=== PATIENT | male | born 1945 | race Caucasian/White ===

== ENCOUNTER → 2018-04-02 | Outpatient (CLI) | payer MEDICARE, OTHER | LOC: M.MRI 07:01 | DX: M79.602 Pain in left arm (principal); G89.29 Other chronic pain ==

== ENCOUNTER 2018-05-30 16:36 | Emergency (ER) | payer MEDICARE, OTHER ==
[~2018-05-30] VITALS: Ht 177.8 cm; Wt 77.1 kg
[2018-05-30] MEDS ORDERED: PROBIOTIC1 EAC2 PO (16:49)
[2018-05-30] MEDS ORDERED: JANUMET 50-1,01 EACH PO (16:49)
[2018-05-30] MEDS ORDERED: CENTRUM ADULTS1 EACH PO (16:49)
[2018-05-30 17:12] LABS: ABSOLUTE BASOPHILS 0.1 thou/uL (0.0-0.2); ABSOLUTE EOSINOPHILS 0.1 thou/uL (0.0-0.7); ABSOLUTE LYMPHOCYTES 1.8 thou/uL (0.8-5.3); ABSOLUTE MONOCYTES 0.9 thou/uL (0.0-1.2); ABSOLUTE NEUTROPHILS 6.2 thou/uL (1.6-8.1); EOSINOPHILS 1.2 %; HEMATOCRIT 42.2 % (42.0-52.0); HEMOGLOBIN 14.3 gm/dL (14.0-18.0); LYMPHOCYTES 19.4 %; MCH 31.3 pg (26.0-34.0); MCHC 33.9 g/dL (28.0-37.0); MCV 92.5 fL (80.0-100.0); MONOCYTES 10.2 %; MPV 7.6 fl. (7.2-11.1); NUCLEATED RBCS 0 /100WBC; PLATELET COUNT* 214 thou/uL (150-400); POLYS 68.2 %; RBC 4.57 mil/uL (4.50-6.00); RDW-CV 13.6 % (10.5-14.5); WBC 9.1 thou/uL (4.0-11.0)
[2018-05-30 17:19] LABS: CALCIUM 8.5 mg/dL (8.5-10.1)
[2018-05-30 17:23] LABS: ALBUMIN 3.1 g/dL (3.4-5.0); TOTAL BILIRUBIN 0.3 mg/dL (<0.1-1.0)
[2018-05-30 17:48] LABS: URINE BILIRUBIN NEGATIVE (Negative); URINE BLOOD NEGATIVE (Negative); URINE CLARITY CLEAR; URINE COLOR YELLOW; URINE GLUCOSE-RANDOM 1+ (Negative); URINE KETONES NEGATIVE (Negative); URINE LEUKOCYTES-REFLEX NEGATIVE (Negative); URINE NITRITE-REFLEX NEGATIVE (Negative); URINE PROTEIN NEGATIVE (Negative); URINE SPECIFIC GRAVITY 1.025 (1.005-1.030); URINE UROBILINOGEN 0.2 E.U./dl (0.2-1.0)
[2018-05-30] MEDS ORDERED: FLAGYL500 M1 PO (18:20)
[2018-05-30] MEDS ORDERED: BENTYL 20 MG TA20 M1 PO (18:20)
[2018-05-30 18:47] VITALS: BP 126/73
== END 2018-05-30 18:36 | disposition home or self-care (01) ==
LOC: M.ERS 16:36
PROVIDERS: Nurse Practitioner Family
DX: K52.9 Noninfective gastroenteritis and colitis, unspecified (principal); R74.8 Abnormal levels of other serum enzymes; E11.9 Type 2 diabetes mellitus without complications; G47.30 Sleep apnea, unspecified; I95.9 Hypotension, unspecified; Z90.49 Acquired absence of other specified parts of digestive tract

== ENCOUNTER 2019-06-29 14:47 | Inpatient (IN) | payer MEDICARE, OTHER ==
[~2019-06-29 14:47] MED LIST changes: -AUGMENTIN 875-1 EACH PO; -GLIPIZIDE 10 MG10 MG PO
[2019-06-29] MEDS ORDERED: GLIPIZIDE 10 MG10 MG PO (18:19)
[2019-06-29 18:21] VITALS: BP 153/85
[2019-06-29 19:32] LABS: URINE BILIRUBIN NEGATIVE (Negative); URINE BLOOD NEGATIVE (Negative); URINE CLARITY CLEAR; URINE COLOR YELLOW; URINE GLUCOSE-RANDOM 1+ (Negative); URINE KETONES NEGATIVE (Negative); URINE LEUKOCYTES NEGATIVE (Negative); URINE NITRITE NEGATIVE (Negative); URINE PROTEIN NEGATIVE (Negative); URINE SPECIFIC GRAVITY 1.025 (1.005-1.030); URINE UROBILINOGEN 0.2 E.U./dl (0.2-1.0)
[2019-06-29 19:35] VITALS: BP 115/69
--- NOTE | 2019-06-29 20:28 | NUR ---
PATIENT IS A DIRECT ADMIT THAT ARRIVED TO UNIT AT APPROX 1630. PATIENT IS ALERT AND ORIENTED X4. ADMISSION HISTORY AND ASSESSMENT COMPLETED AND CHARTED. VSS ON ROOM AIR. MINIMAL COMPLAINT OF PAIN IN LLQ RATED AT 3/10, PATIENT DID NOT REQUEST PAIN MEDICATION. IV STARTED IN THE LEFT FA. PATIENT NPO WITH SIPS FOR MEDS. SURGERY RESIDENT SAW PATIENT AT BEDSIDE. UP AD JASON AND INSTRUCTED TO USE CALL LIGHT FOR NEEDS. CALL LIGHT PLACED IN REACH. HOURLY ROUNDS. WILL CONTINUE WITH PLAN IF CARE.
[2019-06-29 20:35] LABS: ABSOLUTE BASOPHILS 0.1 thou/uL (0.0-0.2); ABSOLUTE EOSINOPHILS 0.1 thou/uL (0.0-0.7); ABSOLUTE LYMPHOCYTES 1.7 thou/uL (0.8-5.3); ABSOLUTE MONOCYTES 1.2 thou/uL (0.0-1.2); ABSOLUTE NEUTROPHILS 5.4 thou/uL (1.6-8.1); BASOPHILS 0.8 %; EOSINOPHILS 1.2 %; HEMATOCRIT 41.7 % (42.0-52.0); HEMOGLOBIN 14.5 gm/dL (14.0-18.0); LYMPHOCYTES 20.2 %; MCHC 34.8 g/dL (28.0-37.0); MCV 91.9 fL (80.0-100.0); MONOCYTES 13.7 %; MPV 8.2 fl. (7.2-11.1); NUCLEATED RBCS 0 /100WBC; PLATELET COUNT* 190 thou/uL (150-400); POLYS 64.1 %; RBC 4.53 mil/uL (4.50-6.00); RDW-CV 14.2 % (10.5-14.5); WBC 8.4 thou/uL (4.0-11.0)
[2019-06-29 20:51] LABS: CALCIUM 8.1 mg/dL (8.5-10.1); CREATININE 1.1 mg/dL (0.6-1.3); POTASSIUM 4.1 mmol/L (3.5-5.1)
[2019-06-29 20:53] LABS: ALBUMIN 3.3 g/dL (3.4-5.0); MAGNESIUM 1.7 mg/dL (1.8-2.4); TOTAL BILIRUBIN 0.3 mg/dL (<0.1-1.0); TOTAL PROTEIN 7.1 g/dL (6.4-8.2)
[2019-06-30 03:00] LABS: ABSOLUTE EOSINOPHILS 0.2 thou/uL (0.0-0.7); ABSOLUTE LYMPHOCYTES 1.8 thou/uL (0.8-5.3); ABSOLUTE NEUTROPHILS 4.8 thou/uL (1.6-8.1); BASOPHILS 0.6 %; LYMPHOCYTES 22.7 %; MCH 31.8 pg (26.0-34.0); MCV 93.3 fL (80.0-100.0); MONOCYTES 12.9 %; MPV 8.2 fl. (7.2-11.1); NUCLEATED RBCS 0 /100WBC; PLATELET COUNT* 193 thou/uL (150-400); POLYS 61.8 %; RDW-CV 14.4 % (10.5-14.5); WBC 7.8 thou/uL (4.0-11.0)
[2019-06-30 03:18] LABS: CALCIUM 8.1 mg/dL (8.5-10.1); CREATININE 1.1 mg/dL (0.6-1.3); MAGNESIUM 1.9 mg/dL (1.8-2.4); PHOSPHORUS* 3.4 mg/dL (2.5-4.9); POTASSIUM 4.2 mmol/L (3.5-5.1)
--- NOTE | 2019-06-30 04:44 | NUR ---
PT RESTING/SLEEPING THROUGH THE NIGHT. REPORTED MILD DISCOMFORT ON LT SIDE OF ABD. MEDS GIVEN ORDERED. VSS ON RA. UP INDEPENDENTLY IN THE ROOM. NPO EXCEPT MEDS. DENIED N/V. WILL CONTINUE TO MONITOR.
[2019-06-30 09:30] VITALS: BP 118/70
--- NOTE | 2019-06-30 14:26 | NUR ---
cm completed initial assessment to discuss d/c plan. pt A&Ox4. pt states is very active. employeed, and goes to "[employer] 3x/wk." pt lives w/spouse. states he has a pretty good support. has a cpap. no hx w/snf or hh. cm to cont to follow.
--- NOTE | 2019-06-30 16:36 | EKG ---
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
--- NOTE | 2019-06-30 19:00 | NUR ---
PATIENT ALERT AND ORIENTED THRU SHIFT. INDEP IN RM. MIN ABD PAIN C/O. AMB IN HALLS INDEP W/ CANE, NOTED STEADY GAIT. SHOWER THIS AM. IV SITE NOTED WNL. FLUIDS INFUSING W/O DIFF. HRLY ROUNDS DONE. DENIES OTHER NEEDS AT THIS TIME. CALL LIGHT IN REACH. ~TJRN
[2019-06-30 20:00] VITALS: BP 130/77
[2019-07-01 04:04] LABS: ABSOLUTE EOSINOPHILS 0.2 thou/uL (0.0-0.7); ABSOLUTE LYMPHOCYTES 1.6 thou/uL (0.8-5.3); ABSOLUTE MONOCYTES 0.8 thou/uL (0.0-1.2); BASOPHILS 0.4 %; EOSINOPHILS 2.5 %; HEMOGLOBIN 13.9 gm/dL (14.0-18.0); MCH 31.6 pg (26.0-34.0); MCHC 33.9 g/dL (28.0-37.0); MCV 93.2 fL (80.0-100.0); MONOCYTES 11.7 %; MPV 8.1 fl. (7.2-11.1); NUCLEATED RBCS 0 /100WBC; PLATELET COUNT* 190 thou/uL (150-400); POLYS 60.4 %; RBC 4.41 mil/uL (4.50-6.00); RDW-CV 14.5 % (10.5-14.5); WBC 6.6 thou/uL (4.0-11.0)
[2019-07-01 04:16] LABS: MAGNESIUM 1.7 mg/dL (1.8-2.4); PHOSPHORUS* 2.8 mg/dL (2.5-4.9)
[2019-07-01 04:19] LABS: ALBUMIN 2.9 g/dL (3.4-5.0); CREATININE 1.1 mg/dL (0.6-1.3); POTASSIUM 4.2 mmol/L (3.5-5.1); TOTAL BILIRUBIN 0.6 mg/dL (<0.1-1.0); TOTAL PROTEIN 6.3 g/dL (6.4-8.2)
--- NOTE | 2019-07-01 06:47 | NUR ---
Alert and oriented x 4. He is up independently in the room to the bathroom. He has not requested and pain meds. He has had IV fluids going all of this shift and IV zosyn running over 4 hours. Vitals are stable. Radiology just called and said to make him NPO for a CT of the abdomen/pelvis, patient was told. His magnesium was low this morning and it was replaced,order placed in the computer for redraw.
[2019-07-01 08:30] VITALS: BP 140/70
[2019-07-01 16:00] VITALS: BP 124/71
--- NOTE | 2019-07-01 19:00 | NUR ---
PT IS A/OX4. DENIES PAIN. NPO THIS AM FOR CT OF THE ABDOMINAL. RESULTS SHOW MILD DIVERTICULITIS WITH NO PERFORATION. THE PTS DIET WAS ADVANCED TO CLEARS TO SOFT. GI IN TO SEE THE PT. DISCHARGE TO BE LEFT TO THE HOSPITALIST. HOSPITALIST NOTES THE PT TO STAY 1-2 DAYS. CONTINUES ON IVF NS @ 100 VIA LT FA. PT IS RESTING QUIETLY AT THIS TIME WITH CALL LIGHT IN REACH. BED LOW AND LOCKED. WILL CONTINUE TO MONITOR.
[2019-07-01 20:50] VITALS: BP 125/75
[2019-07-02 04:33] LABS: HEMATOCRIT 40.8 % (42.0-52.0); HEMOGLOBIN 13.9 gm/dL (14.0-18.0); MCH 31.6 pg (26.0-34.0); MCHC 34.1 g/dL (28.0-37.0); MCV 92.6 fL (80.0-100.0); RBC 4.41 mil/uL (4.50-6.00); RDW-CV 14.4 % (10.5-14.5); WBC 5.3 thou/uL (4.0-11.0)
[2019-07-02 04:57] LABS: ALBUMIN 2.9 g/dL (3.4-5.0); CALCIUM 7.8 mg/dL (8.5-10.1); CREATININE 1.1 mg/dL (0.6-1.3); MAGNESIUM 1.9 mg/dL (1.8-2.4); POTASSIUM 4.2 mmol/L (3.5-5.1); TOTAL BILIRUBIN 0.4 mg/dL (<0.1-1.0); TOTAL PROTEIN 6.4 g/dL (6.4-8.2)
--- NOTE | 2019-07-02 07:02 | NUR ---
PATIENT HAS RESTED WELL THROUGHOUT MOST OF THE NIGHT. VSS ON RA. NO C/O PAIN. PATIENT IS UP AD-JASON. TOLERATING DIET WELL. IV IN LEFT FOREARM-NS @ 100ML/HR. PATIENT INSTRUCTED TO USE CALL LIGHT WHEN NEEDING ASSISTANCE. HOURLY ROUNDS MADE. WILL CONTINUE WITH PLAN OF CARE AND NURSING TO MONITOR.
[2019-07-02 07:52] VITALS: BP 156/76
[2019-07-02] MEDS ORDERED: AUGMENTIN 875-1 EACH PO ×2 (11:05)
[2019-07-02 13:24] VITALS: BP 156/76
--- NOTE | 2019-07-02 14:25 | NUR ---
PT DISCHAGRED TO HOME SELF CARE. IV REMOVED. DISCHARGE INSTRUCTION REVIEWED WITH THE PT. PRESCRIPTION GIVEN TO THE PT. PT STABLE. ALL FOLLOW UP APPOINTMENTS REVIEWED. PT HAS ALL BELONGINGS. AMBULATED TO PERSONAL VEHICLE ACCOMPANIED BY STAFF.
--- NOTE | 2019-07-05 09:20 | CON ---
[facility] [address] [place] [address] CONSULTATION Name: DARCIE OLIVEROS Room: [address] IN M.R.#: [id number] Admission: 06/29/19 Attend Phys: Janine Rodriguez Discharge: 07/02/19 Date of : 45 Report #: [id number] THIS REPORT FOR: //name// cc: Jazmyne Wakefield NP, Tammy NP ~ THIS REPORT FOR: //name// CC: Joselin Brown DICTATED BY: Janina Vanessa [facility] DATE OF SERVICE: 07/01/2019 Please note at the time of this dictation, the patient was seen and physically examined by myself. REASON FOR CONSULTATION: Diverticulitis. HISTORY OF PRESENT ILLNESS: This is a 73-year-old male who was admitted to the Emergency Room after he went and saw his PCP on 06/27 for left lower quadrant pain. He denied any fever, chills or any change in his bowel habits. He denied having any constipation. On Thursday06/29/2019, he went and had a CT scan done that showed a small pocket of free air of 2.5 cm with diverticulitis on the left side that was noted. He was then direct admit to the floor following learning of his CT results. The patient states his bowels move usually on a daily basis, soft and formed. He has not had any issues with constipation. He denied any nausea, vomiting or any fever or chills. The patient was started on antibiotics IV at that particular time. The patient states his last colonoscopy was in 2008 and everything was normal with Dr. Lima. He also at that time had an EGD done and was noted to have grade 1 esophageal cancer. He was sent to see Dr. Pang who later underwent surgery. His last EGD was with Dr. De Dios in 2012 and he has not had a followup with that. He continues to deny any issues with any acid reflux at this time. ALLERGIES: No known drug allergies. MEDICATIONS: From home includes Janumet, Centrum, probiotic and some Bentyl and he had started on Flagyl 500. PAST MEDICAL HISTORY: Esophageal cancer back in 2008, current diverticulitis, osteoarthritis and diabetes. PAST SURGICAL HISTORY: He had an appendectomy [place] [address] CONSULTATION Name: DARCIE OLIVEROS Room: [address]#: [id number] Admission: 06/29/19 Attend Phys: Janine Rodriguez Discharge: 07/02/19 Date of : 45 Report #: [id number] gastric polyp. FAMILY HISTORY: Negative for any GI or female cancers. SOCIAL HISTORY: Lives with his spouse. Denies any alcohol, tobacco or illegal drug use. REVIEW OF SYSTEMS: Twelve-point review of systems is essentially negative except what is mentioned in the HPI. PHYSICAL EXAMINATION: VITAL SIGNS: Temperature 36.6, pulse 54, respirations 18, blood pressure 130/77. HEART: Regular rate and rhythm. LUNGS: Clear. ABDOMEN: Soft, positive bowel sounds in all 4 quadrants with some tenderness noted in the left lower quadrant area. LABORATORY DATA: Hemoglobin is 13.9, white count is 6.6, platelets are 190. GFR is 66. His LFTs are completely normal. CT done this morning shows slight improvement in the mild diverticulitis in the low descending colon compared to previously with no diverticular abscess or sign of perforation noted at this time. IMPRESSION: 1. Left lower quadrant pain. 2. Diverticulitis, improving. 3. History of esophageal cancer. PLAN: 1. We will continue his current antibiotics, IV and upon discharge, he will need additional oral medication at that time. 2. Recommend a low residue diet for the next month. 3. The patient will need EGD and colon in about 6 weeks with aching of his diverticular disease. 4. Further recommendations to be made once Dr. Mei sees the patient later today. Thank you for allowing us to participate in this patient's care. Please do not hesitate to call with any questions in regard to this consult. <ELECTRONICALLY SIGNED> By: Andres Mei DO 07/05/19 0920 1140 [id number] Mei DO /nt
== END 2019-07-02 14:25 | disposition home or self-care (01) | DRG 392 ==
LOC: M.ORTHSURG 14:47
PROVIDERS: Internal Medicine; Surgery; ADMIT Internal Medicine
DX: K57.20 Diverticulitis of large intestine with perforation and abscess without bleeding (principal); E44.0 Moderate protein-calorie malnutrition; E11.9 Type 2 diabetes mellitus without complications; E78.5 Hyperlipidemia, unspecified; G47.33 Obstructive sleep apnea (adult) (pediatric); M19.90 Unspecified osteoarthritis, unspecified site; Z85.01 Personal history of malignant neoplasm of esophagus; Z79.84 Long term (current) use of oral hypoglycemic drugs; Z79.899 Other long term (current) drug therapy; Z90.49 Acquired absence of other specified parts of digestive tract; Z82.49 Family history of ischemic heart disease and other diseases of the circulatory system; Z83.3 Family history of diabetes mellitus; Z99.81 Dependence on supplemental oxygen; Z86.010 Personal history of colon polyps

== ENCOUNTER → 2019-06-29 | Outpatient (CLI) | payer MEDICARE, OTHER ==
[~2019-06-29] MED LIST: AUGMENTIN 875-1 EACH PO; BENTYL 20 MG TA20 M1 PO; CENTRUM ADULTS1 EACH PO; FLAGYL500 M1 PO; GLIPIZIDE 10 MG10 MG PO; JANUMET 50-1,01 EACH PO; PROBIOTIC1 EAC2 PO
== END ==
LOC: M.CT 10:00
DX: N20.0 Calculus of kidney (principal); K57.30 Diverticulosis of large intestine without perforation or abscess without bleeding; N32.89 Other specified disorders of bladder

== ENCOUNTER → 2019-09-09 | Outpatient (CLI) | payer MEDICARE, OTHER ==
[~2019-09-09] MED LIST changes: +AUGMENTIN 875-1 EACH PO; +GLIPIZIDE 10 MG10 MG PO
== END ==
LOC: M.LAB 08:00 → M.SUR 09-15 07:16 → EDSTATUS 09-15 09:34 → M.SUR 09-15 16:19
PROVIDERS: ATTEND Internal Medicine Gastroenterology
DX: Z01.812 Encounter for preprocedural laboratory examination (principal); K57.92 Diverticulitis of intestine, part unspecified, without perforation or abscess without bleeding; Z85.01 Personal history of malignant neoplasm of esophagus

== ENCOUNTER 2020-08-17 15:37 | Inpatient (IN) | payer MEDICARE, OTHER ==
[~2020-08-17] VITALS: Ht 175.3 cm; Wt 80.5 kg
[2020-08-17 15:40] VITALS: BP 143/82
[2020-08-17 16:28] LABS: ABSOLUTE BASOPHILS 0.1 thou/uL (0.0-0.2); ABSOLUTE EOSINOPHILS 0.2 thou/uL (0.0-0.7); ABSOLUTE LYMPHOCYTES 2.1 thou/uL (0.8-5.3); ABSOLUTE MONOCYTES 0.8 thou/uL (0.0-1.2); BASOPHILS 1.2 %; EOSINOPHILS 2.5 %; HEMATOCRIT 42.6 % (42.0-52.0); HEMOGLOBIN 14.3 gm/dL (14.0-18.0); LYMPHOCYTES 28.8 %; MCH 31.5 pg (26.0-34.0); MCHC 33.6 g/dL (28.0-37.0); MCV 93.8 fL (80.0-100.0); MONOCYTES 11.8 %; MPV 7.9 fl. (7.2-11.1); NUCLEATED RBCS 0 /100WBC; PLATELET COUNT* 189 thou/uL (150-400); POLYS 55.7 %; RBC 4.54 mil/uL (4.50-6.00); WBC 7.1 thou/uL (4.0-11.0)
[2020-08-17 16:39] LABS: CALCIUM 9.1 mg/dL (8.5-10.1); POTASSIUM 4.2 mmol/L (3.5-5.1)
[2020-08-17 16:41] LABS: INR 1.2; PROTIME 12.5 Seconds (9.20-11.50)
[2020-08-17 16:44] LABS: ALBUMIN 3.6 g/dL (3.4-5.0); TOTAL BILIRUBIN 0.5 mg/dL (<0.1-1.0); TOTAL PROTEIN 7.5 g/dL (6.4-8.2)
[2020-08-17 20:06] VITALS: BP 130/72
[2020-08-17 21:00] VITALS: BP 146/62
[2020-08-18 00:19] VITALS: BP 136/64
[2020-08-18 04:15] VITALS: BP 147/69
[2020-08-18 05:39] LABS: CHOLESTEROL 175 mg/dL (<200); HDL CHOLESTEROL 42 mg/dL (>40); LDL CHOLESTEROL 99 mg/dL (<100); TC:HDL 4.2 Ratio (Not establshd); TRIGLYCERIDE 170 mg/dL (<150); VLDL 34 mg/dL (<40)
[2020-08-18 05:41] LABS: ALBUMIN 3.3 g/dL (3.4-5.0); CALCIUM 8.8 mg/dL (8.5-10.1); CREATININE 1.1 mg/dL (0.6-1.3); POTASSIUM 3.7 mmol/L (3.5-5.1); TOTAL BILIRUBIN 0.5 mg/dL (<0.1-1.0); TOTAL PROTEIN 7.2 g/dL (6.4-8.2)
[2020-08-18 05:52] LABS: SERUM ASSESSMENT CLEAR
--- NOTE | 2020-08-18 07:07 | NUR ---
RECEIVED REPORT FROM ED RN. PT TRANSFERRED TO RM 220. PT A&OX4. VSS. PHYSICAL ASSESSMENT COMPLETED AND CHARTED. PT ON RA. PT TRACING SR/SB/1ST DEG ON TELE. PT UPADLIB. NIH CHARTED. CALL LIGHT WITHIN REACH.
[2020-08-18 08:00] VITALS: BP 157/79
[2020-08-18 11:37] VITALS: BP 135/80
--- NOTE | 2020-08-18 12:28 | EKG ---
[place] [address] ELECTROCARDIOGRAM REPORT Name: DARCIE OLIVEROS Room: [address] ADM IN M.R.#: [id number] Admission: 08/17/20 Attend Phys: Salazar Wong, Discharge: Date of : 45 Date of Service: 08/17/20 1545 Report #: [id number] THIS REPORT FOR: //name// [facility] ED Test Date: 2020-08-17 Test Time: 15:45:14 Pat Name: DARCIE LIAOWIN Department: Room: [facility] Gender: M Front Desk Person: ELVI : 1945 Requested By: Quintin Edwards Order Number: [id number] MD: Yogi Cuello Measurements Intervals [place] Rate: 63 P: 60 IN: 217 QRS: 25 QRSD: 81 T: 33 QT: 403 QTc: 413 Interpretive Statements Sinus rhythm Borderline prolonged IN interval Compared to ECG 06/29/2019 18:18:57 T-wave abnormality no longer present Electronically Signed On 08-18-2020 12:27:47 CDT by Yogi Cuello [email or web address] <ELECTRONICALLY SIGNED> By: Yfn Cuello MD, [facility] 08/18/20 1227 1545 1545 Yfn Cuello MD, [facility] /EPI
[2020-08-18 16:04] VITALS: BP 138/80
--- NOTE | 2020-08-18 18:54 | NUR ---
RECEIVED REPORT. ASSUMED CARE OF PT AROUND 0730. AM ASSESSMENT AND VITALS COMPLETED CHARTED. ENTRY OPERATOR IN PLACE. MEDS PER EMAR. NIH 1. PLAN TO DC TOMORROW. PROGRESSING TOWARDS GOALS. CALL LIGHT WITHIN REACH. HOURLY ROUNDING PERFORMED.
[2020-08-18 20:00] VITALS: BP 127/79
[2020-08-19 00:24] VITALS: BP 133/76; BP 177/46
--- NOTE | 2020-08-19 04:45 | NUR ---
ASSUMED CARE OF PT AFTER REPORT AT 1930. PT A&OX4. VSS. PHYSICAL ASSESSMENT COMPLETED AND CHARTED. PT ON RA. PT TRACING SR/SB ON TELE. PT UPADLIB TO RESTROOM. NIH CHARTED. PT DENIES ANY PAIN. CALL LIGHT WITHIN REACH.
[2020-08-19 05:36] LABS: GLYCOHEMOGLOBIN (HGB A1C) 7.6 % (4.8-5.6)
[2020-08-19 07:16] VITALS: BP 147/79
[2020-08-19] MEDS ORDERED: CLOPIDOGREL75 MG PO (07:50)
[2020-08-19 08:00] VITALS: BP 146/85
[2020-08-19] MEDS ORDERED: ASPIRIN EC81 M1 PO (09:23)
[2020-08-19 10:20] VITALS: BP 146/85
--- NOTE | 2020-08-19 11:32 | NUR ---
RECEIVED REPORT. ASSUMED CARE OF PT AROUND 0730. AM ASSESSMENT AND VITALS COMPLETED CHARTED. MEDS PER EMAR. NIH COMPLETED. DC ORDERS RECEIVED. DISCHARGE COMPLETED DOCUMENTED. PT AWARE TO THERAPEUTIC SUPPORT STAFF SCRIPTS FROM PHARMACY. AWARE OF F/U APPOINTMENTS. IV AND DIVING INSTRUCTOR REMOVED. ALL BELONGINGS GATHERED AND SENT OUT WITH PT. PT LEFT UNIT WALKING WITH NURSING STAFF. PT LEFT HOSPITAL IN CAR DRIVING SELF.
== END 2020-08-19 11:32 | disposition home or self-care (01) | DRG 66 ==
LOC: M.ERS 15:37 → M.2W 17:06 → M.TBA-ER 17:06 → M.2W 19:17
PROVIDERS: Emergency Medicine Emergency Medical Services; ADMIT Internal Medicine; ATTEND Internal Medicine
DX: I63.9 Cerebral infarction, unspecified (principal); G47.30 Sleep apnea, unspecified; E11.9 Type 2 diabetes mellitus without complications; Z20.822 Contact with and (suspected) exposure to COVID-19; Z85.01 Personal history of malignant neoplasm of esophagus; Z90.49 Acquired absence of other specified parts of digestive tract; Z99.81 Dependence on supplemental oxygen; Z79.84 Long term (current) use of oral hypoglycemic drugs; Z79.899 Other long term (current) drug therapy

== ENCOUNTER → 2020-09-04 | Outpatient (CLI) | payer MEDICARE, OTHER ==
[~2020-09-04] MED LIST changes: +ASPIRIN EC81 M1 PO; +CLOPIDOGREL75 MG PO
--- NOTE | 2020-09-04 13:17 | 2DMMODE ---
[place] [address] 2 D/M-MODE ECHOCARDIOGRAM Name: DARCIE OLIVEROS Room: [facility]#: [id number] Admission: 09/04/20 Attend Phys: DELVIN Gallardo Discharge: Date of : 45 Date of Service: 09/04/20 1317 Report #: [id number] THIS REPORT FOR: cc: Jazmyne Wakefield Tammy RNP Blick, David R. MD [facility] ~ APPROVED REPORT Study performed: 09/04/2020 07:46:39 EXAM: Limited 2D Echocardiogram/ Bubble Study Patient Location: Out-Patient BSA: 1.97 HR: 64 bpm BP: 143/82 mmHg Other Information Study Quality: Good Indications CVA/TIA 2D Dimensions IVSd: 10.51 (7-11mm) LVDd: 36.60 mm PWd: 8.06 (7-11mm) LVDs: 21.47 (25-40mm) Aortic Root: 29.19 mm Left Ventricle The left ventricle is normal size. There is normal LV segmental wall motion. There is normal left ventricular wall thickness. Left ventricular systolic function is normal. The left ventricular ejection fraction is within the normal range. LVEF is 55-60%. Right Ventricle The right ventricle is normal size. The right ventricular systolic function is normal. Atria The left atrium size is normal. Injection of bubbles documented no interatrial shunt. The right atrium size is normal[place] [address] 2 D/M-MODE ECHOCARDIOGRAM Name: DARCIE OLIVEROS Room: [facility]#: [id number] Admission: 09/04/20 Attend Phys: DELVIN Gallardo Discharge: Date of : 45 Date of Service: 09/04/201316 Report #: [id number] The aortic valve is normal in structure. Mitral Valve The mitral valve is normal in structure. Tricuspid Valve The tricuspid valve is normal in structure. Pulmonic Valve The pulmonary valve is normal in structure. Great Vessels The aortic root is normal in size. IVC is not well visualized. Pericardium There is no pericardial effusion. <Conclusion> LVEF is 55-60%. Injection of bubbles documented no interatrial shunt. <ELECTRONICALLY SIGNED> By: Thomas Whittaker MD, FACC 09/04/201316 16 16 Thomas Whittaker MD, FACC /INF
== END ==
LOC: M.CRD 07:24 → M.MRI 08:30
PROVIDERS: ATTEND Registered Nurse Diabetes Educator
DX: G31.9 Degenerative disease of nervous system, unspecified (principal); I63.9 Cerebral infarction, unspecified; J34.89 Other specified disorders of nose and nasal sinuses